=== PATIENT | male | born 1990 | race Two or more races ===

== ENCOUNTER 2016-08-20 22:48 | Emergency (ER) | payer SELFPAY ==
[~2016-08-20] VITALS: Ht 175.3 cm; Wt 89.0 kg
[2016-08-21] MEDS ORDERED: ONDANSETRON ODT 4 MG PO ONE
[2016-08-21] MEDS ORDERED: MAALOX/HYOSCYAMINE/LIDOCAINE 45 ML BOTTLE PO ONE
[2016-08-21] MEDS ORDERED: MAALOX/HYOSCYAMINE/LIDOCAINE 45 ML BOTTLE ONE (00:18)
[2016-08-21] MEDS ORDERED: ONDANSETRON ODT 4 MG ONE (00:18)
[2016-08-21] MEDS ORDERED: OMEP-110 PO (00:23)
[2016-08-21] MEDS ORDERED: RANI75TA12 PO (00:23)
[2016-08-21 00:27] LABS: BLOOD UREA NITROGEN 12 mg/dL (7-18)
[2016-08-21 00:31] LABS: ASPARTATE AMINO TRANSFERASE 19 U/L (15-37)
[2016-08-21 02:11] VITALS: BP 135/98
== END 2016-08-21 02:13 | disposition home or self-care (01) ==
LOC: ED 08-21 02:01
DX: R10.13 Epigastric pain (principal)
CPT/HCPCS: 36415; 76700; 80053; 81003; 83690; 85025; 93005; 99285; Q0162

== ENCOUNTER 2016-09-12 19:38 | Emergency (ER) | payer SELFPAY ==
[~2016-09-12] VITALS: Ht 175.3 cm; Wt 83.5 kg
[~2016-09-12 19:38] MED LIST: OMEP-110 PO; RANI75TA12 PO
[2016-09-12] MEDS ORDERED: SODIUM CHLORIDE 0.9% 1,000 ML IV ONE (20:23)
[2016-09-12] MEDS ORDERED: ONDANSETRON 2MG/ML, 2ML IVPush ONE (20:30)
[2016-09-12] MEDS ORDERED: MAALOX/HYOSCYAMINE/LIDOCAINE 45 ML BOTTLE PO ONE (20:30)
[2016-09-12] MEDS ORDERED: FAMOTIDINE 20 MG/2 ML IVP ONE (20:30)
[2016-09-12] MEDS ORDERED: LORazepam 2 MG/ML, 1ML IVPush ONE (20:30)
[2016-09-12] MEDS ORDERED: ONDANSETRON 2MG/ML, 2ML ONE (20:34)
[2016-09-12] MEDS ORDERED: MAALOX/HYOSCYAMINE/LIDOCAINE 45 ML BOTTLE ONE (20:34)
[2016-09-12] MEDS ORDERED: FAMOTIDINE 20 MG/2 ML ONE (20:34)
[2016-09-12] MEDS ORDERED: LORazepam 2 MG/ML, 1ML ONE (20:35)
[2016-09-12 20:56] LABS: ASPARTATE AMINO TRANSFERASE 14 U/L (15-37); BLOOD UREA NITROGEN 10 mg/dL (7-18)
[2016-09-12 21:37] VITALS: BP 123/86
== END 2016-09-12 21:39 | disposition home or self-care (01) ==
LOC: ED 20:34
DX: K26.3 Acute duodenal ulcer without hemorrhage or perforation (principal); B96.81 Helicobacter pylori [H. pylori] as the cause of diseases classified elsewhere; K21.9 Gastro-esophageal reflux disease without esophagitis
CPT/HCPCS: 36415; 71010; 80053; 83690; 85025; 86677; 93005; 96361; 96374; 96375; 99285; J2060; J2405; J7030; S0028

== ENCOUNTER 2016-12-06 18:42 | Emergency (ER) | payer MEDICAID ==
[~2016-12-06] VITALS: Ht 175.3 cm; Wt 87.6 kg
[2016-12-06] MEDS ORDERED: MAALOX/HYOSCYAMINE/LIDOCAINE 45 ML BTL PO ONE (19:30)
[2016-12-06 19:41] LABS: HEMATOCRIT 48.2 % (39.2-51.8); HEMOGLOBIN 16.5 g/dL (13.7-18.0); WHITE BLOOD COUNT 7.6 x10^3/uL (3.4-10)
[2016-12-06] MEDS ORDERED: MAALOX/HYOSCYAMINE/LIDOCAINE 45 ML BTL ONE (19:49)
[2016-12-06 19:53] LABS: ASPARTATE AMINO TRANSFERASE 20 U/L (15-37); BLOOD UREA NITROGEN 15 mg/dL (7-18)
[2016-12-06 20:26] VITALS: BP 127/92
== END 2016-12-06 20:29 | disposition home or self-care (01) ==
LOC: ED 19:51
DX: R10.84 Generalized abdominal pain (principal); K58.9 Irritable bowel syndrome, unspecified
CPT/HCPCS: 36415; 74020; 80053; 83690; 85025; 99285

== ENCOUNTER 2017-03-09 14:01 | Emergency (ER) | payer MEDICAID ==
[~2017-03-09] VITALS: Ht 175.3 cm; Wt 90.0 kg
[2017-03-09] MEDS ORDERED: KETOROLAC 30 MG/1 ML ONE (14:56)
[2017-03-09] MEDS ORDERED: DIAZEPAM 5 MG TABLET ONE (14:56)
[2017-03-09] MEDS ORDERED: KETOROLAC 30 MG/1 ML IM ONE (15:00)
[2017-03-09] MEDS ORDERED: DIAZEPAM 5 MG TABLET PO ONE (15:00)
[2017-03-09 15:56] VITALS: BP 129/93
== END 2017-03-09 15:59 | disposition home or self-care (01) ==
LOC: ED 15:54
DX: S39.012A Strain of muscle, fascia and tendon of lower back, initial encounter (principal); X58.XXXA Exposure to other specified factors, initial encounter; Y93.67 Activity, basketball; Y92.89 Other specified places as the place of occurrence of the external cause; Y99.8 Other external cause status
CPT/HCPCS: 96372; 99283; J1885